=== PATIENT | male | born 2000 | race Caucasian/White ===

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

== ENCOUNTER → 2020-04-06 | Outpatient (CLI) | payer BC ==
[~2020-04-06] MED LIST: FLEXERIL 1010 MG/TAB PO; NORCO 325 MG-51 TAB PO
== END ==
LOC: COL.RAD 12:23
DX: R79.89 Other specified abnormal findings of blood chemistry (principal)

== ENCOUNTER 2022-02-07 20:58 | Emergency (ER) | payer BC ==
[~2022-02-07] VITALS: Ht 198.1 cm; Wt 115.9 kg
[2022-02-07 21:02] VITALS: TEMP 98
[2022-02-07 22:05] VITALS: BP 136/93; PULSE 82
== END 2022-02-07 22:05 | disposition home or self-care (01) ==
LOC: COL.ER 20:58
DX: K62.89 Other specified diseases of anus and rectum (principal)